=== PATIENT | male | born 1940 | race Hispanic/Latino ===

== ENCOUNTER 2019-07-23 15:28 | Observation (INO) | payer MEDICARE ==
[~2019-07-23] VITALS: Ht 167.6 cm; Wt 83.9 kg
[~2019-07-23 15:28] MED LIST: GLYB1TAB3 PO; MELO7.5T12 PO
[2019-07-23] MEDS ORDERED: ACETAMINOPHEN 325 MG TAB PO PRN (16:15)
[2019-07-23] MEDS ORDERED: SODIUM CHLORIDE 0.9% 10 ML VIAL IVP PRN (16:15)
[2019-07-23] MEDS ORDERED: DiphenhydrAMINE HCL 50 MG/ML VIAL IVP PRN (16:15)
[2019-07-23] MEDS: PHENAZOPYRIDINE HCL 200 MG TABLET PO SCH (16:15)
[2019-07-23 16:17] LABS: BASOPHILS % (AUTO) 0.8 % (0.0-5.0); HEMATOCRIT 29.6 % (42-54); LYMPHOCYTES % (AUTO) 20.9 % (21.0-51.0); MEAN CORPUSCULAR HEMOGLOBIN 30.3 pg (27.0-33.0); MEAN CORPUSCULAR HGB CONC 35.2 g/dL (32.0-36.0); MEAN CORPUSCULAR VOLUME 86.2 fL (79-99); MONOCYTES % (AUTO) 10.4 % (3.0-13.0); NEUTROPHILS % (AUTO) 62.9 % (40.0-77.0); NUCLEATED RED BLOOD CELLS 0.1 % (0.0-0.19); PLATELET COUNT (AUTO) 72 K/uL (130-400); RED BLOOD CELL COUNT(AUTO) 3.44 MIL/uL (4.50-6.20); RED CELL DISTRIBUTION WIDTH 15.1 % (11.0-15.5); WHITE BLOOD COUNT (AUTO) 3.3 K/uL (4.8-10.8)
[2019-07-23 16:27] LABS: CREATININE 0.8 mg/dL (0.5-1.5); POTASSIUM 3.8 mmol/L (3.5-5.1)
[2019-07-23 16:32] LABS: BILIRUBIN,DIRECT 0.5 mg/dL (0.0-0.3); BILIRUBIN,TOTAL 1.5 mg/dL (0.2-1.0); TOTAL PROTEIN, SERUM 6.6 g/dL (6.0-8.3)
[2019-07-23 16:57] LABS: PLATELET MORPHOLOGY COMMENT DECREASED
[2019-07-23] MEDS ORDERED: 1/2 NORMAL SALINE 1,000 ML IV ONE (17:28)
[2019-07-23] MEDS ORDERED: CEFTRIAXONE SODIUM 1 GM ONE (18:07)
[2019-07-23] MEDS ORDERED: PHENAZOPYRIDINE HCL 200 MG TABLET ONE (18:07)
[2019-07-23] MEDS ORDERED: SODIUM CHLORIDE 0.9% 100 ML IV ONE (18:07)
[2019-07-23 18:13] LABS: APPEARANCE,URINE CLOUDY (CLEAR); BILIRUBIN,URINE SMALL (NEGATIVE); COLOR,URINE YELLOW (YELLOW); GLUCOSE, URINE (UA) NEGATIVE (NEGATIVE); KETONES,URINE 5 mg/dL (NEGATIVE); LEUKOCYTE ESTERASE ,URINE LARGE (NEGATIVE); NITRATE,URINE POSITIVE (NEGATIVE); OCCULT BLOOD,URINE SMALL (NEGATIVE); PROTEIN,URINE TRACE mg/dL (NEGATIVE); UROBILINOGEN,URINE 0.2 mg/dL (0.2-1.0)
[2019-07-23 18:18] LABS: BACTERIA,URINE Many /HPF (None Seen); MUCUS,URINE None Seen LPF (None Seen); SQUAMOUS EPITHELIAL CELL,UR 0-2 /HPF (0-2)
[2019-07-23 19:15] VITALS: BP 121/68
[2019-07-23] MEDS ORDERED: LISI-617 PO (20:36)
[2019-07-23] MEDS ORDERED: ACET-575 PO (20:36)
[2019-07-23] MEDS ORDERED: MULT-1289 PO (20:36)
[2019-07-23] MEDS: FAMOTIDINE 20MG TAB 20 MG TAB PO SCH (21:00)
[2019-07-24 00:02] VITALS: BP 129/71
[2019-07-24] MEDS: PHENAZOPYRIDINE HCL 200 MG TABLET PO SCH ×3 (00:30→17:32)
[2019-07-24 04:00] VITALS: BP 113/63
[2019-07-24 05:07] LABS: HEMATOCRIT 26.3 % (42-54); MEAN CORPUSCULAR HEMOGLOBIN 30.2 pg (27.0-33.0); MEAN CORPUSCULAR HGB CONC 35.6 g/dL (32.0-36.0); MEAN CORPUSCULAR VOLUME 84.8 fL (79-99); PLATELET COUNT (AUTO) 65 K/uL (130-400); RED CELL DISTRIBUTION WIDTH 14.6 % (11.0-15.5); WHITE BLOOD COUNT (AUTO) 2.8 K/uL (4.8-10.8)
[2019-07-24 05:22] LABS: ALBUMIN 2.4 g/dL (3.5-5.0); BILIRUBIN,DIRECT 0.4 mg/dL (0.0-0.3); BILIRUBIN,TOTAL 1.2 mg/dL (0.2-1.0); CREATININE 0.8 mg/dL (0.5-1.5); POTASSIUM 4.4 mmol/L (3.5-5.1); TOTAL PROTEIN, SERUM 5.5 g/dL (6.0-8.3)
[2019-07-24 05:40] LABS: BASOPHILS % (MANUAL) 1 % (0-2); EOSINOPHILS % (MANUAL) 10 % (1-6); LYMPHOCYTES % (MANUAL) 25 % (22-44); MAN.DIFF COMMENT-IMPRESSION MANUAL DIFFERENTIAL; MONOCYTES % (MANUAL) 9 % (2-9); SEGMENTED NEUTROPHILS % 55 % (40-70)
[2019-07-24 08:00] VITALS: BP 110/66
[2019-07-24] MEDS ORDERED: PANTOPRAZOLE 40 MG/VIAL IVP SCH (09:00)
[2019-07-24] MEDS: FAMOTIDINE 20MG TAB 20 MG TAB PO SCH ×2 (09:57→19:55)
[2019-07-24] MEDS: CEFTRIAXONE SODIUM 1 GM IVP SCH (09:58)
[2019-07-24 12:00] VITALS: BP 120/69
[2019-07-24] MEDS ORDERED: DIATR MEGLU/DIATRIZOATE SODIUM 30 ML BOTTLE ONE (13:35)
[2019-07-24] MEDS ORDERED: IOHEXOL-350 50ML VIAL IV ONE (13:36)
[2019-07-24] MEDS ORDERED: IOHEXOL-350 75 ML VIAL IV ONE (15:22)
[2019-07-24 16:00] VITALS: BP 140/78
[2019-07-24 20:00] VITALS: BP 133/71
[2019-07-25] VITALS: BP 142/77
[2019-07-25] MEDS: PHENAZOPYRIDINE HCL 200 MG TABLET PO SCH ×2 (00:23→07:51)
[2019-07-25 03:10] VITALS: BP 107/50
[2019-07-25 05:42] LABS: BASOPHILS % (AUTO) 0.9 % (0.0-5.0); HEMATOCRIT 27.3 % (42-54); LYMPHOCYTES % (AUTO) 24.8 % (21.0-51.0); MEAN CORPUSCULAR HEMOGLOBIN 30.1 pg (27.0-33.0); MEAN CORPUSCULAR HGB CONC 34.8 g/dL (32.0-36.0); MEAN CORPUSCULAR VOLUME 86.3 fL (79-99); MONOCYTES % (AUTO) 12.1 % (3.0-13.0); NEUTROPHILS % (AUTO) 55.2 % (40.0-77.0); PLATELET COUNT (AUTO) 60 K/uL (130-400); RED BLOOD CELL COUNT(AUTO) 3.16 MIL/uL (4.50-6.20); RED CELL DISTRIBUTION WIDTH 14.9 % (11.0-15.5); WHITE BLOOD COUNT (AUTO) 2.6 K/uL (4.8-10.8)
[2019-07-25 05:57] LABS: ALBUMIN 2.3 g/dL (3.5-5.0); BILIRUBIN,DIRECT 0.4 mg/dL (0.0-0.3); BILIRUBIN,TOTAL 1.1 mg/dL (0.2-1.0); CREATININE 0.7 mg/dL (0.5-1.5); POTASSIUM 4.2 mmol/L (3.5-5.1); TOTAL PROTEIN, SERUM 5.4 g/dL (6.0-8.3)
[2019-07-25] MEDS: FAMOTIDINE 20MG TAB 20 MG TAB PO SCH (07:51)
[2019-07-25] MEDS: CEFTRIAXONE SODIUM 1 GM IVP SCH (07:51)
[2019-07-25 07:57] VITALS: BP 129/61
[2019-07-25] MEDS ORDERED: PANTOPRAZOLE SODIUM 40 MG TABLET.DR PO SCH (08:09)
[2019-07-25] MEDS ORDERED: FURO20TA6 PO (10:27)
== END 2019-07-25 11:25 | disposition home or self-care (01) ==
LOC: EDH 15:28 → EDHIP 15:29 → 3BH 19:15
PROVIDERS: ADMIT Internal Medicine; ATTEND Internal Medicine
DX: R53.1 Weakness (principal); R14.0 Abdominal distension (gaseous); D64.9 Anemia, unspecified; N39.0 Urinary tract infection, site not specified; I10 Essential (primary) hypertension; E11.9 Type 2 diabetes mellitus without complications; E78.00 Pure hypercholesterolemia, unspecified; Z90.49 Acquired absence of other specified parts of digestive tract
CPT/HCPCS: 36415 ×3; 74178; 76700; 76856; 80048 ×3; 80076 ×3; 81001; 82140; 82948; 85025 ×2; 85027; 86850; 86900; 86901; 96374; 96375; 96376; 99284; C9113; G0378 ×43; J0696 ×3; Q9963; Q9967

== ENCOUNTER → 2019-08-05 | Outpatient (CLI) | payer MEDICARE ==
[~2019-08-05] MED LIST changes: +ACET-575 PO; +FURO20TA6 PO; -GLYB1TAB3 PO; +LISI-617 PO; -MELO7.5T12 PO; +MULT-1289 PO
== END | disposition home or self-care (01) ==
LOC: RAH 07:35
PROVIDERS: ATTEND Internal Medicine Gastroenterology
DX: R16.1 Splenomegaly, not elsewhere classified (principal); R18.8 Other ascites; N26.1 Atrophy of kidney (terminal); Z90.49 Acquired absence of other specified parts of digestive tract
CPT/HCPCS: 76700; 93975

== ENCOUNTER 2019-08-13 12:40 | Emergency (ER) | payer MEDICARE ==
[2019-08-13 13:47] LABS: BASOPHILS % (AUTO) 1.2 % (0.0-5.0); EOSINOPHILS % (AUTO) 6.8 % (0.0-8.0); HEMATOCRIT 29.1 % (42-54); LYMPHOCYTES % (AUTO) 17.8 % (21.0-51.0); MEAN CORPUSCULAR HEMOGLOBIN 29.6 pg (27.0-33.0); MEAN CORPUSCULAR HGB CONC 34.8 g/dL (32.0-36.0); MEAN CORPUSCULAR VOLUME 85.1 fL (79-99); MONOCYTES % (AUTO) 12.4 % (3.0-13.0); NEUTROPHILS % (AUTO) 61.8 % (40.0-77.0); PLATELET COUNT (AUTO) 70 K/uL (130-400); RED BLOOD CELL COUNT(AUTO) 3.43 MIL/uL (4.50-6.20)
[2019-08-13 13:52] LABS: CREATININE 0.9 mg/dL (0.5-1.5)
[2019-08-13 13:56] LABS: INR 1.27 (0.85-1.15); PARTIAL THROMBOPLASTIN TIME 28.2 SEC (26.3-35.5); PROTHROMBIN TIME 13.2 SEC (9.6-11.6)
[2019-08-13 13:59] LABS: ALBUMIN 2.8 g/dL (3.5-5.0); TOTAL PROTEIN, SERUM 6.8 g/dL (6.0-8.3)
[2019-08-13 14:29] LABS: BASOPHILS % (MANUAL) 3 % (0-2); EOSINOPHILS % (MANUAL) 5 % (1-6); LYMPHOCYTES % (MANUAL) 20 % (22-44); MAN.DIFF COMMENT-IMPRESSION MANUAL DIFFERENTIAL; MONOCYTES % (MANUAL) 3 % (2-9); SEGMENTED NEUTROPHILS % 69 % (40-70)
[2019-08-13 14:30] LABS: PLATELET MORPHOLOGY COMMENT DECREASED
== END 2019-08-13 15:23 | disposition home or self-care (01) ==
LOC: EDH 12:40
DX: R05 Cough (principal); E11.9 Type 2 diabetes mellitus without complications; E78.00 Pure hypercholesterolemia, unspecified; K74.60 Unspecified cirrhosis of liver; Z90.49 Acquired absence of other specified parts of digestive tract; Z79.899 Other long term (current) drug therapy
CPT/HCPCS: 36415; 71046; 80053; 85025; 85610; 85730; 87798; 87804

== ENCOUNTER 2019-10-06 08:00 | Day surgery (SDC) | payer MEDICARE ==
[~2019-10-06] VITALS: Ht 170.2 cm; Wt 65.3 kg
[~2019-10-06 08:00] MED LIST changes: +CA C1TAB95 PO; +FERR-82 PO; -FURO20TA6 PO; +FURO40TA5 PO; +LACT10SO46 PO; -LISI-617 PO; +MAGN200T4 PO; +MILK500C PO; +SODIUM CHLORIDE 0.9% 1000ML 1,000 ML IV ONE; +SPIR50TA5 PO
[2019-10-06 08:35] VITALS: BP 132/64
[2019-10-06] MEDS ORDERED: PROPOFOL 10 MG/ML 20ML VIAL IV ONE (09:15)
[2019-10-06 09:35] VITALS: BP 108/76
[2019-10-06 09:40] VITALS: BP 107/69
[2019-10-06 09:45] VITALS: BP 133/73
[2019-10-06 09:50] VITALS: BP 131/67
== END 2019-10-06 10:07 | disposition home or self-care (01) ==
LOC: ENDO 08:00 → DAH 08:00 → ENDO 10:07
PROVIDERS: ATTEND Internal Medicine Gastroenterology
DX: I85.00 Esophageal varices without bleeding (principal); K76.6 Portal hypertension; K31.89 Other diseases of stomach and duodenum; K21.9 Gastro-esophageal reflux disease without esophagitis; I10 Essential (primary) hypertension; E11.9 Type 2 diabetes mellitus without complications; E78.5 Hyperlipidemia, unspecified; Z79.899 Other long term (current) drug therapy; Z90.49 Acquired absence of other specified parts of digestive tract; Z98.890 Other specified postprocedural states; Z80.0 Family history of malignant neoplasm of digestive organs; Z82.49 Family history of ischemic heart disease and other diseases of the circulatory system
CPT/HCPCS: 43244; 82948 ×2; A4215; A4221; A4222; A4223; A4606; A4620; A4663; J2704; J7030

== ENCOUNTER 2019-12-23 13:52 | Observation (INO) | payer MEDICARE ==
[~2019-12-23] VITALS: Ht 172.7 cm; Wt 72.6 kg
[~2019-12-23 13:52] MED LIST changes: -SODIUM CHLORIDE 0.9% 1000ML 1,000 ML IV ONE
[2019-12-23 15:01] LABS: APPEARANCE,URINE Clear (CLEAR); BILIRUBIN,URINE Negative (NEGATIVE); COLOR,URINE Yellow (YELLOW); GLUCOSE, URINE (UA) Negative (NEGATIVE); KETONES,URINE Negative (NEGATIVE); LEUKOCYTE ESTERASE ,URINE Negative (NEGATIVE); NITRATE,URINE Negative (NEGATIVE); OCCULT BLOOD,URINE Negative (NEGATIVE); PROTEIN,URINE Negative (NEGATIVE); UROBILINOGEN,URINE 0.2 mg/dL (0.2-1.0)
[2019-12-23 15:15] LABS: BASOPHILS % (AUTO) 0.8 % (0.0-5.0); EOSINOPHILS % (AUTO) 1.6 % (0.0-8.0); HEMATOCRIT 37.5 % (42-54); LYMPHOCYTES % (AUTO) 20.9 % (21.0-51.0); MEAN CORPUSCULAR HEMOGLOBIN 29.5 pg (27.0-33.0); MEAN CORPUSCULAR HGB CONC 34.9 g/dL (32.0-36.0); MEAN CORPUSCULAR VOLUME 84.5 fL (79-99); MONOCYTES % (AUTO) 11.9 % (3.0-13.0); NEUTROPHILS % (AUTO) 64.2 % (40.0-77.0); PLATELET COUNT (AUTO) 77 K/uL (130-400); RED BLOOD CELL COUNT(AUTO) 4.44 MIL/uL (4.50-6.20); RED CELL DISTRIBUTION WIDTH 14.8 % (11.0-15.5)
[2019-12-23 15:24] LABS: CREATININE 1.5 mg/dL (0.5-1.5); POTASSIUM 4.2 mmol/L (3.5-5.1)
[2019-12-23 15:29] LABS: ALBUMIN 3.7 g/dL (3.5-5.0); BILIRUBIN,TOTAL 2.5 mg/dL (0.2-1.0)
[2019-12-23] MEDS ORDERED: LACTULOSE 20 GM/30 ML UDCUP ONE (15:52)
[2019-12-23] MEDS ORDERED: 1/2 NORMAL SALINE 1,000 ML IV ONE (18:47)
[2019-12-23] MEDS: 1/2 NORMAL SALINE 1,000 ML IV SCH (19:30)
[2019-12-23] MEDS ORDERED: LACTULOSE 20 GM/30 ML UDCUP PO SCH (21:00)
[2019-12-23 22:30] VITALS: BP 139/86
[2019-12-24 03:40] VITALS: BP 145/79
[2019-12-24 04:08] LABS: HEMATOCRIT 38.8 % (42-54); MEAN CORPUSCULAR HEMOGLOBIN 29.4 pg (27.0-33.0); MEAN CORPUSCULAR HGB CONC 34.3 g/dL (32.0-36.0); MEAN CORPUSCULAR VOLUME 85.8 fL (79-99); PLATELET COUNT (AUTO) 77 K/uL (130-400); RED BLOOD CELL COUNT(AUTO) 4.52 MIL/uL (4.50-6.20); RED CELL DISTRIBUTION WIDTH 14.8 % (11.0-15.5); WHITE BLOOD COUNT (AUTO) 5.8 K/uL (4.8-10.8)
[2019-12-24 04:19] LABS: ALBUMIN 3.7 g/dL (3.5-5.0); BILIRUBIN,TOTAL 2.8 mg/dL (0.2-1.0); CREATININE 1.4 mg/dL (0.5-1.5); POTASSIUM 4.7 mmol/L (3.5-5.1); TOTAL PROTEIN, SERUM 8.3 g/dL (6.0-8.3)
[2019-12-24 08:00] VITALS: BP 123/72
[2019-12-24] MEDS: LACTULOSE 20 GM/30 ML UDCUP PO SCH ×4 (09:00→21:07)
[2019-12-24] MEDS ORDERED: CALC600T12 PO (11:18)
[2019-12-24 12:00] VITALS: BP 126/72
--- NOTE | 2019-12-24 14:57 | NUR ---
INITIAL Patient lives with spouse, Brooke Cash, [phone]. No home services. DME: [facility], glucometer (no insulin). Patient is able to complete ADL's independently but does not drive. PCP is Dr. Ben Myles. Pharmacy is [facility] located at [facility]. Patient is on a 1:1 observation due to being confused. As per spouse, patient is not usually confused at home. Spouse stated confusion is due to high ammonia levels. DCP is home. Addendum: 12/24/19 at 1503 by CALOS SWARTZ SS Amended: Links added.
[2019-12-24] MEDS: 1/2 NORMAL SALINE 1,000 ML IV SCH (15:30)
[2019-12-24 16:00] VITALS: BP 136/75
[2019-12-24 20:00] VITALS: BP 105/57
[2019-12-25] VITALS: BP 114/65
[2019-12-25 04:00] VITALS: BP 102/57
[2019-12-25 05:45] LABS: BASOPHILS % (AUTO) 0.9 % (0.0-5.0); EOSINOPHILS % (AUTO) 2.7 % (0.0-8.0); HEMATOCRIT 35.6 % (42-54); LYMPHOCYTES % (AUTO) 20.6 % (21.0-51.0); MEAN CORPUSCULAR HEMOGLOBIN 29.9 pg (27.0-33.0); MEAN CORPUSCULAR HGB CONC 34.8 g/dL (32.0-36.0); MEAN CORPUSCULAR VOLUME 85.8 fL (79-99); NEUTROPHILS % (AUTO) 64.4 % (40.0-77.0); PLATELET COUNT (AUTO) 73 K/uL (130-400); RED BLOOD CELL COUNT(AUTO) 4.15 MIL/uL (4.50-6.20); RED CELL DISTRIBUTION WIDTH 14.7 % (11.0-15.5); WHITE BLOOD COUNT (AUTO) 5.6 K/uL (4.8-10.8)
[2019-12-25 05:59] LABS: ALBUMIN 3.4 g/dL (3.5-5.0); BILIRUBIN,TOTAL 2.7 mg/dL (0.2-1.0); CREATININE 1.4 mg/dL (0.5-1.5); POTASSIUM 4.3 mmol/L (3.5-5.1); TOTAL PROTEIN, SERUM 7.5 g/dL (6.0-8.3)
[2019-12-25 07:04] VITALS: BP 106/62
--- NOTE | 2019-12-25 08:22 | NUR ---
Discharge orders in the chart. Education and instructions provided at the bedside with patient and . Emphasis on dx of hepatic encephalopathy, s/s to monitor for, when to seek emergency care vs dial 911. Pt is to follow up with PCP Dr. Myles in 1 week, must call Friday for an appointment. No new rx. Pt is to continue all previous home medications as ordered, especially lactulose. Discussed importance of taking this exactly as prescribed. PIV removed from rt forearm, tip intact. Dressed with sterile 2x2 and band aid after hemostasis achieved. Pt and wish to wait for am lactulose to be administered prior to leaving, Primary nurse Brit informed.
[2019-12-25] MEDS: LACTULOSE 20 GM/30 ML UDCUP PO SCH (08:28)
== END 2019-12-25 08:35 | disposition home or self-care (01) ==
LOC: EDH 13:52 → EDHIP 16:20 → 4BH 20:45
PROVIDERS: ADMIT Internal Medicine; ATTEND Internal Medicine
DX: K72.90 Hepatic failure, unspecified without coma (principal); E11.9 Type 2 diabetes mellitus without complications; E78.5 Hyperlipidemia, unspecified; D53.9 Nutritional anemia, unspecified; D69.6 Thrombocytopenia, unspecified; I10 Essential (primary) hypertension; K74.60 Unspecified cirrhosis of liver
CPT/HCPCS: 36415 ×3; 70450; 71045; 72170; 73080; 80053 ×3; 81003; 82140 ×3; 85025 ×2; 85027; 93005; 99291; G0378 ×9

== ENCOUNTER 2021-07-22 13:09 | Inpatient (IN) | payer MEDICARE ==
[2021-07-22] VITALS (7 sets, daily range): BP systolic 110–134; BP diastolic 53–67
[~2021-07-22] VITALS: Ht 175.3 cm; Wt 70.7 kg
[~2021-07-22 13:09] MED LIST changes: -CA C1TAB95 PO; +CALC-1125 PO; -FERR-82 PO
[2021-07-22] MEDS ORDERED: QUET50TA24 PO (13:22)
[2021-07-22] MEDS ORDERED: SPIR50TA5 PO (13:22)
[2021-07-22] MEDS ORDERED: SERT-440 PO (13:22)
[2021-07-22] MEDS ORDERED: OLAN5TAB76 PO (13:22)
[2021-07-22] MEDS ORDERED: DONE10TA43 PO (13:22)
[2021-07-22] MEDS ORDERED: MEMA5TAB7 PO (13:22)
[2021-07-22] MEDS ORDERED: PANT20TA18 PO (13:22)
[2021-07-22] MEDS ORDERED: FERR-72 PO (13:22)
[2021-07-22] MEDS ORDERED: ACETAMINOPHEN 500 MG TABLET PO SCH (13:30)
[2021-07-22 14:20] LABS: BASOPHILS % (AUTO) 0.7 % (0.0-5.0); EOSINOPHILS % (AUTO) 1.8 % (0.0-8.0); HEMATOCRIT 31.5 % (42-54); LYMPHOCYTES % (AUTO) 13.2 % (21.0-51.0); MEAN CORPUSCULAR HEMOGLOBIN 27.6 pg (27.0-33.0); MEAN CORPUSCULAR HGB CONC 33.3 g/dL (32.0-36.0); MEAN CORPUSCULAR VOLUME 82.7 fL (79-99); MONOCYTES % (AUTO) 7.9 % (3.0-13.0); NEUTROPHILS % (AUTO) 76.2 % (40.0-77.0); PLATELET COUNT (AUTO) 66 K/uL (130-400); RED BLOOD CELL COUNT(AUTO) 3.81 MIL/uL (4.50-6.20); RED CELL DISTRIBUTION WIDTH 17.9 % (11.0-15.5); WHITE BLOOD COUNT (AUTO) 4.5 K/uL (4.8-10.8)
[2021-07-22 14:35] LABS: CREATININE 1.6 mg/dL (0.5-1.5); POTASSIUM 4.6 mmol/L (3.5-5.1)
[2021-07-22 14:45] LABS: B-TYPE NATRIURETIC PEPTIDE 78 pg/mL (0-100)
[2021-07-22 14:48] LABS: ALBUMIN 3.5 g/dL (3.5-5.0); CRP QUANTITATIVE 3.2 mg/L (0.00-9.0); TOTAL PROTEIN, SERUM 7.5 g/dL (6.0-8.3)
[2021-07-22] MEDS ORDERED: 0.9%NACL 1000ML 1,000 ML IV SCH (15:00)
[2021-07-22] MEDS ORDERED: 1/2 NS 1000ML 1,000 ML IV ONE (15:09)
[2021-07-22] MEDS ORDERED: ACETAMINOPHEN 325 MG TAB PO PRN (15:30)
[2021-07-22] MEDS ORDERED: 1/2 NS 1000ML 1,000 ML IV SCH ×2 (15:30)
[2021-07-22] MEDS ORDERED: LACTULOSE 20 GM/30 ML UDCUP PO PRN (15:30)
[2021-07-22 16:06] LABS: APPEARANCE,URINE Clear (CLEAR); BILIRUBIN,URINE Negative (NEGATIVE); COLOR,URINE Yellow (YELLOW); GLUCOSE, URINE (UA) Negative (NEGATIVE); KETONES,URINE Negative (NEGATIVE); LEUKOCYTE ESTERASE ,URINE Negative (NEGATIVE); NITRATE,URINE Negative (NEGATIVE); OCCULT BLOOD,URINE Negative (NEGATIVE); PROTEIN,URINE Negative (NEGATIVE)
[2021-07-22] MEDS: LACTULOSE 20 GM/30 ML UDCUP PO SCH (17:07)
[2021-07-22] MEDS: OLANZAPINE 5 MG TAB PO SCH (20:27)
[2021-07-22] MEDS: SERTRALINE HCL 50 MG TABLET PO SCH (20:27)
[2021-07-22] MEDS: SPIRONOLACTONE 25 MG TAB PO SCH (20:27)
[2021-07-22] MEDS: MEMANTINE HCL 5 MG TABLET PO SCH (20:27)
[2021-07-22] MEDS: QUETIAPINE FUMARATE 100 MG TAB PO SCH (20:27)
[2021-07-22] MEDS ORDERED: NON-FORMULARY MEDICATION 1 EACH (Sertraline HCl 100 MG) PO SCH (21:00)
[2021-07-22] MEDS ORDERED: NON-FORMULARY MEDICATION 1 EACH (Quetiapine Fumarate 50 MG) PO SCH (21:00)
[2021-07-22] MEDS ORDERED: NON-FORMULARY MEDICATION 1 EACH (Spironolactone 50 MG) PO SCH (21:00)
[2021-07-23] VITALS (10 sets, daily range): BP systolic 91–140; BP diastolic 48–62
[2021-07-23 06:49] LABS: BASOPHILS % (AUTO) 1.1 % (0.0-5.0); EOSINOPHILS % (AUTO) 2.5 % (0.0-8.0); MEAN CORPUSCULAR HEMOGLOBIN 27.4 pg (27.0-33.0); MEAN CORPUSCULAR VOLUME 83.1 fL (79-99); MONOCYTES % (AUTO) 10.7 % (3.0-13.0); NEUTROPHILS % (AUTO) 62.4 % (40.0-77.0); PLATELET COUNT (AUTO) 57 K/uL (130-400); RED BLOOD CELL COUNT(AUTO) 3.61 MIL/uL (4.50-6.20); RED CELL DISTRIBUTION WIDTH 18.1 % (11.0-15.5); WHITE BLOOD COUNT (AUTO) 3.7 K/uL (4.8-10.8)
[2021-07-23 07:05] LABS: ALBUMIN 3.2 g/dL (3.5-5.0); BILIRUBIN,TOTAL 1.1 mg/dL (0.2-1.0); CREATININE 1.5 mg/dL (0.5-1.5); POTASSIUM 4.4 mmol/L (3.5-5.1); TOTAL PROTEIN, SERUM 6.9 g/dL (6.0-8.3)
[2021-07-23] MEDS: LACTULOSE 20 GM/30 ML UDCUP PO SCH ×2 (08:29→22:16)
[2021-07-23] MEDS: DONEPEZIL HCL 5 MG TAB PO SCH (08:29)
[2021-07-23] MEDS: FERROUS SULFATE 325 MG TABLET.DR PO SCH (08:29)
[2021-07-23] MEDS: MEMANTINE HCL 5 MG TABLET PO SCH ×2 (08:29→22:17)
[2021-07-23] MEDS: PANTOPRAZOLE 40 MG TAB DR PO SCH (08:29)
[2021-07-23] MEDS: FUROSEMIDE 40 MG TABLET PO SCH (08:29)
[2021-07-23] MEDS: SPIRONOLACTONE 25 MG TAB PO SCH ×2 (08:29→22:17)
[2021-07-23] MEDS ORDERED: NON-FORMULARY MEDICATION 1 EACH (Pantoprazole Sodium 20 MG) PO SCH (09:00)
[2021-07-23] MEDS ORDERED: NON-FORMULARY MEDICATION 1 EACH (Ferrous Sulfate 325 MG) PO SCH (09:00)
[2021-07-23] MEDS ORDERED: NON-FORMULARY MEDICATION 1 EACH (Donepezil HCl 10 MG) PO SCH (09:00)
[2021-07-23] MEDS ORDERED: GLUCAGON 1MG KIT 1 MG ML IM PRN (17:30)
[2021-07-23] MEDS ORDERED: DEXTROSE 50%-WATER 50 ML DISP.SYRIN IV PRN (18:30)
[2021-07-23] MEDS: INSULIN HUMULIN R 100 UNIT/ML 3ML SQ SCH (21:00)
[2021-07-23] MEDS: QUETIAPINE FUMARATE 100 MG TAB PO SCH (22:17)
[2021-07-23] MEDS: OLANZAPINE 5 MG TAB PO SCH (22:17)
[2021-07-23] MEDS: SERTRALINE HCL 50 MG TABLET PO SCH (22:17)
[2021-07-24 00:40] VITALS: BP 97/48
[2021-07-24 03:37] VITALS: BP 101/54
[2021-07-24 03:56] LABS: BASOPHILS % (AUTO) 0.8 % (0.0-5.0); EOSINOPHILS % (AUTO) 1.3 % (0.0-8.0); HEMATOCRIT 30.3 % (42-54); LYMPHOCYTES % (AUTO) 16.8 % (21.0-51.0); MEAN CORPUSCULAR HEMOGLOBIN 27.7 pg (27.0-33.0); MEAN CORPUSCULAR HGB CONC 32.7 g/dL (32.0-36.0); MEAN CORPUSCULAR VOLUME 84.6 fL (79-99); MONOCYTES % (AUTO) 12.1 % (3.0-13.0); NEUTROPHILS % (AUTO) 68.7 % (40.0-77.0); PLATELET COUNT (AUTO) 56 K/uL (130-400); RED BLOOD CELL COUNT(AUTO) 3.58 MIL/uL (4.50-6.20); RED CELL DISTRIBUTION WIDTH 18.1 % (11.0-15.5); WHITE BLOOD COUNT (AUTO) 3.8 K/uL (4.8-10.8)
[2021-07-24 04:24] LABS: ALBUMIN 3.1 g/dL (3.5-5.0); BILIRUBIN,TOTAL 1.5 mg/dL (0.2-1.0); CREATININE 1.5 mg/dL (0.5-1.5); POTASSIUM 4.4 mmol/L (3.5-5.1); TOTAL PROTEIN, SERUM 6.8 g/dL (6.0-8.3)
[2021-07-24] MEDS: INSULIN HUMULIN R 100 UNIT/ML 3ML SQ SCH ×3 (06:40→20:47)
[2021-07-24 07:10] VITALS: BP 105/53
[2021-07-24] MEDS: DONEPEZIL HCL 5 MG TAB PO SCH (08:52)
[2021-07-24] MEDS: LACTULOSE 20 GM/30 ML UDCUP PO SCH ×2 (08:52→21:08)
[2021-07-24] MEDS: SPIRONOLACTONE 25 MG TAB PO SCH ×2 (08:52→21:09)
[2021-07-24] MEDS: PANTOPRAZOLE 40 MG TAB DR PO SCH (08:53)
[2021-07-24] MEDS: MEMANTINE HCL 5 MG TABLET PO SCH ×2 (08:53→21:09)
[2021-07-24] MEDS: FUROSEMIDE 40 MG TABLET PO SCH (08:53)
[2021-07-24] MEDS: FERROUS SULFATE 325 MG TABLET.DR PO SCH (08:53)
[2021-07-24 11:40] VITALS: BP 103/60
[2021-07-24 14:55] VITALS: BP 110/52
[2021-07-24 19:59] VITALS: BP 120/57
[2021-07-24] MEDS: QUETIAPINE FUMARATE 100 MG TAB PO SCH (21:09)
[2021-07-24] MEDS: OLANZAPINE 5 MG TAB PO SCH (21:09)
[2021-07-24] MEDS: SERTRALINE HCL 50 MG TABLET PO SCH (21:09)
[2021-07-25] VITALS (7 sets, daily range): BP systolic 105–123; BP diastolic 42–56
[2021-07-25] MEDS: INSULIN HUMULIN R 100 UNIT/ML 3ML SQ SCH ×3 (06:03→22:05)
[2021-07-25] MEDS: LACTULOSE 20 GM/30 ML UDCUP PO SCH ×2 (08:41→21:00)
[2021-07-25] MEDS: MEMANTINE HCL 5 MG TABLET PO SCH ×2 (08:41→22:04)
[2021-07-25] MEDS: PANTOPRAZOLE 40 MG TAB DR PO SCH (08:42)
[2021-07-25] MEDS: FERROUS SULFATE 325 MG TABLET.DR PO SCH (08:42)
[2021-07-25] MEDS: SPIRONOLACTONE 25 MG TAB PO SCH ×2 (08:42→22:03)
[2021-07-25] MEDS: FUROSEMIDE 40 MG TABLET PO SCH (08:42)
[2021-07-25] MEDS: DONEPEZIL HCL 5 MG TAB PO SCH (08:42)
[2021-07-25 09:05] LABS: HEMATOCRIT 31.4 % (42-54); MEAN CORPUSCULAR HEMOGLOBIN 27.8 pg (27.0-33.0); MEAN CORPUSCULAR HGB CONC 33.4 g/dL (32.0-36.0); MEAN CORPUSCULAR VOLUME 83.1 fL (79-99); PLATELET COUNT (AUTO) 55 K/uL (130-400); RED BLOOD CELL COUNT(AUTO) 3.78 MIL/uL (4.50-6.20); RED CELL DISTRIBUTION WIDTH 17.5 % (11.0-15.5); WHITE BLOOD COUNT (AUTO) 9.3 K/uL (4.8-10.8)
[2021-07-25 09:44] LABS: CREATININE 1.8 mg/dL (0.5-1.5); POTASSIUM 4.1 mmol/L (3.5-5.1)
[2021-07-25 09:49] LABS: BILIRUBIN,TOTAL 1.8 mg/dL (0.2-1.0)
[2021-07-25 09:58] LABS: BASOPHILS % (MANUAL) 1 % (0-2); LYMPHOCYTES % (MANUAL) 12 % (22-44); MAN.DIFF COMMENT-IMPRESSION MANUAL DIFFERENTIAL; MONOCYTES % (MANUAL) 5 % (2-9); PLATELET MORPHOLOGY COMMENT DECREASED; SEGMENTED NEUTROPHILS % 82 % (40-70)
[2021-07-25] MEDS: SERTRALINE HCL 50 MG TABLET PO SCH (22:03)
[2021-07-25] MEDS: OLANZAPINE 5 MG TAB PO SCH (22:03)
[2021-07-25] MEDS: QUETIAPINE FUMARATE 100 MG TAB PO SCH (22:04)
[2021-07-26 03:42] VITALS: BP 100/47
[2021-07-26 04:58] LABS: BASOPHILS % (AUTO) 0.4 % (0.0-5.0); EOSINOPHILS % (AUTO) 1.4 % (0.0-8.0); HEMATOCRIT 30.1 % (42-54); LYMPHOCYTES % (AUTO) 9.8 % (21.0-51.0); MEAN CORPUSCULAR HEMOGLOBIN 27.7 pg (27.0-33.0); MEAN CORPUSCULAR HGB CONC 33.6 g/dL (32.0-36.0); MEAN CORPUSCULAR VOLUME 82.7 fL (79-99); MONOCYTES % (AUTO) 10.4 % (3.0-13.0); NEUTROPHILS % (AUTO) 77.6 % (40.0-77.0); PLATELET COUNT (AUTO) 52 K/uL (130-400); RED BLOOD CELL COUNT(AUTO) 3.64 MIL/uL (4.50-6.20); WHITE BLOOD COUNT (AUTO) 7.1 K/uL (4.8-10.8)
[2021-07-26] MEDS: INSULIN HUMULIN R 100 UNIT/ML 3ML SQ SCH ×4 (05:47→22:52)
[2021-07-26 08:00] VITALS: BP 93/54
[2021-07-26] MEDS: FUROSEMIDE 40 MG TABLET PO SCH (09:02)
[2021-07-26] MEDS: MEMANTINE HCL 5 MG TABLET PO SCH (09:02)
[2021-07-26] MEDS: FERROUS SULFATE 325 MG TABLET.DR PO SCH (09:02)
[2021-07-26] MEDS: PANTOPRAZOLE 40 MG TAB DR PO SCH (09:03)
[2021-07-26] MEDS: SPIRONOLACTONE 25 MG TAB PO SCH ×2 (09:03→22:40)
[2021-07-26] MEDS: DONEPEZIL HCL 5 MG TAB PO SCH (09:03)
[2021-07-26] MEDS: ACETAMINOPHEN 325 MG TAB PO PRN (09:16)
[2021-07-26 12:00] VITALS: BP 100/60
[2021-07-26 16:00] VITALS: BP 112/52
[2021-07-26 20:35] VITALS: BP 114/58
[2021-07-26] MEDS: SERTRALINE HCL 50 MG TABLET PO SCH (22:40)
[2021-07-27] VITALS (7 sets, daily range): BP systolic 83–133; BP diastolic 38–65
[2021-07-27 04:38] LABS: AMMONIA 106 umol/L (11-32)
[2021-07-27 05:09] LABS: ALANINE AMINOTRANSFERASE 23 U/L (12-78); ALBUMIN 2.6 g/dL (3.5-5.0); ASPARTATE AMINOTRANSFERASE 48 U/L (10-37); BILIRUBIN,DIRECT 0.2 mg/dL (0.0-0.3); BILIRUBIN,TOTAL 0.8 mg/dL (0.2-1.0); CARBON DIOXIDE 21 mmol/L (21-32); CHLORIDE 104 mmol/L (101-111); CREATININE 1.4 mg/dL (0.5-1.5); GLOMERULAR FILTR. RATE CALC 52 mL/min (>60); GLUCOSE,RANDOM 191 mg/dL (70-105); POTASSIUM 4.2 mmol/L (3.5-5.1); SODIUM SERUM 137 mmol/L (136-145); TOTAL PROTEIN, SERUM 6.6 g/dL (6.0-8.3); UREA NITROGEN, BLOOD 41 mg/dL (7-18)
[2021-07-27] MEDS: INSULIN HUMULIN R 100 UNIT/ML 3ML SQ SCH ×4 (07:30→20:19)
[2021-07-27] MEDS: SPIRONOLACTONE 25 MG TAB PO SCH ×3 (09:00→20:17)
[2021-07-27] MEDS: FUROSEMIDE 40 MG TABLET PO SCH (09:49)
[2021-07-27] MEDS: LACTULOSE 20 GM/30 ML UDCUP PO SCH ×3 (09:49→20:18)
[2021-07-27] MEDS: FERROUS SULFATE 325 MG TABLET.DR PO SCH (09:49)
[2021-07-27] MEDS: PANTOPRAZOLE 40 MG TAB DR PO SCH (09:49)
[2021-07-27] MEDS: ACETAMINOPHEN 325 MG TAB PO PRN (09:50)
[2021-07-27] MEDS: SERTRALINE HCL 50 MG TABLET PO SCH (20:18)
[2021-07-28 03:58] VITALS: BP 130/63
[2021-07-28 04:20] LABS: HEMATOCRIT 29.6 % (42-54); MEAN CORPUSCULAR HEMOGLOBIN 27.7 pg (27.0-33.0); MEAN CORPUSCULAR HGB CONC 33.1 g/dL (32.0-36.0); MEAN CORPUSCULAR VOLUME 83.6 fL (79-99); PLATELET COUNT (AUTO) 71 K/uL (130-400); RED BLOOD CELL COUNT(AUTO) 3.54 MIL/uL (4.50-6.20); RED CELL DISTRIBUTION WIDTH 16.6 % (11.0-15.5); WHITE BLOOD COUNT (AUTO) 5.4 K/uL (4.8-10.8)
[2021-07-28 04:32] LABS: CREATININE 1.5 mg/dL (0.5-1.5); POTASSIUM 3.8 mmol/L (3.5-5.1)
[2021-07-28 05:25] LABS: BAND NEUTROPHILS % (MANUAL) 1 % (0-2); LYMPHOCYTES % (MANUAL) 10 % (22-44); MAN.DIFF COMMENT-IMPRESSION MANUAL DIFFERENTIAL; METAMYELOCYTES % 1 % (0-0); MONOCYTES % (MANUAL) 4 % (2-9); SEGMENTED NEUTROPHILS % 84 % (40-70)
[2021-07-28] MEDS: INSULIN HUMULIN R 100 UNIT/ML 3ML SQ SCH ×2 (05:59→11:30)
[2021-07-28 07:41] VITALS: BP 117/55
[2021-07-28] MEDS: PANTOPRAZOLE 40 MG TAB DR PO SCH (08:53)
[2021-07-28] MEDS: SPIRONOLACTONE 25 MG TAB PO SCH (08:53)
[2021-07-28] MEDS: FUROSEMIDE 40 MG TABLET PO SCH (08:53)
[2021-07-28] MEDS: FERROUS SULFATE 325 MG TABLET.DR PO SCH (08:53)
[2021-07-28] MEDS: LACTULOSE 20 GM/30 ML UDCUP PO SCH (08:53)
[2021-07-28 11:54] VITALS: BP 134/59
== END 2021-07-28 14:02 | DRG 442 ==
LOC: EDH 13:09 → EDHIP 15:13 → 4CH 07-23 18:28
PROVIDERS: ADMIT Internal Medicine; ATTEND Internal Medicine
DX: K72.90 Hepatic failure, unspecified without coma (principal); K76.6 Portal hypertension; S22.42XA Multiple fractures of ribs, left side, initial encounter for closed fracture; G82.20 Paraplegia, unspecified; D61.818 Other pancytopenia; F05 Delirium due to known physiological condition; J47.9 Bronchiectasis, uncomplicated; E78.00 Pure hypercholesterolemia, unspecified; F03.90 Unspecified dementia, unspecified severity, without behavioral disturbance, psychotic disturbance, mood disturbance, and anxiety; E78.5 Hyperlipidemia, unspecified; D64.9 Anemia, unspecified; E86.0 Dehydration; D69.59 Other secondary thrombocytopenia; D73.1 Hypersplenism; F10.10 Alcohol abuse, uncomplicated; G31.2 Degeneration of nervous system due to alcohol; I10 Essential (primary) hypertension; E11.9 Type 2 diabetes mellitus without complications; R29.6 Repeated falls; K70.30 Alcoholic cirrhosis of liver without ascites; Z79.4 Long term (current) use of insulin; Z79.899 Other long term (current) drug therapy; Z74.01 Bed confinement status
CPT/HCPCS: 36415; 70450; 71250; 72125; 73020; 73100; 80048; 80053; 80076; 81003; 82140; 82550; 82607; 82746; 82948; 83880; 84443; 84484; 85025; 86140; 93005; 97039; G0378; J1815

== ENCOUNTER 2021-09-23 08:16 | Inpatient (IN) | payer MEDICARE ==
[~2021-09-23] VITALS: Ht 167.6 cm; Wt 61.3 kg
[~2021-09-23 08:16] MED LIST changes: -ACET-575 PO; -CALC-1125 PO; +DONE10TA43 PO; +FERR-72 PO; -MAGN200T4 PO; +MEMA5TAB7 PO; -MILK500C PO; -MULT-1289 PO; +OLAN5TAB76 PO; +PANT20TA18 PO; +QUET50TA24 PO; +SERT-440 PO
[2021-09-23 08:59] LABS: BASOPHILS % (AUTO) 0.8 % (0.0-5.0); EOSINOPHILS % (AUTO) 6.4 % (0.0-8.0); HEMATOCRIT 31.4 % (42-54); LYMPHOCYTES % (AUTO) 24.4 % (21.0-51.0); MEAN CORPUSCULAR HEMOGLOBIN 28.1 pg (27.0-33.0); MEAN CORPUSCULAR HGB CONC 33.8 g/dL (32.0-36.0); MEAN CORPUSCULAR VOLUME 83.3 fL (79-99); MONOCYTES % (AUTO) 9.4 % (3.0-13.0); NEUTROPHILS % (AUTO) 58.6 % (40.0-77.0); PLATELET COUNT (AUTO) 70 K/uL (130-400); RED BLOOD CELL COUNT(AUTO) 3.77 MIL/uL (4.50-6.20); RED CELL DISTRIBUTION WIDTH 15.6 % (11.0-15.5); WHITE BLOOD COUNT (AUTO) 4.9 K/uL (4.8-10.8)
[2021-09-23 09:07] LABS: CREATININE 1.7 mg/dL (0.5-1.5); POTASSIUM 4.5 mmol/L (3.5-5.1)
[2021-09-23 09:09] LABS: INR 1.1 (0.85-1.15); PROTHROMBIN TIME 11.9 SEC (9.6-11.6)
[2021-09-23 09:13] LABS: ALBUMIN 3.4 g/dL (3.5-5.0); BILIRUBIN,TOTAL 1.5 mg/dL (0.2-1.0); MAGNESIUM 1.9 mg/dL (1.80-2.40); TOTAL PROTEIN, SERUM 6.7 g/dL (6.0-8.3)
[2021-09-23 09:45] LABS: APPEARANCE,URINE Clear (CLEAR); BILIRUBIN,URINE Negative (NEGATIVE); COLOR,URINE Yellow (YELLOW); GLUCOSE, URINE (UA) Negative (NEGATIVE); KETONES,URINE Negative (NEGATIVE); LEUKOCYTE ESTERASE ,URINE Trace (NEGATIVE); NITRATE,URINE Negative (NEGATIVE); OCCULT BLOOD,URINE Negative (NEGATIVE); PROTEIN,URINE Negative (NEGATIVE); UROBILINOGEN,URINE 0.2 mg/dL (0.2-1.0)
[2021-09-23 09:52] LABS: AMPHET/METH SCREEN,URINE NEGATIVE (NEGATIVE); BARBITURATE SCREEN, URINE NEGATIVE (NEGATIVE); BENZODIAZEPINES SCREEN,URINE NEGATIVE (NEGATIVE); CANNABINOID SCREEN,URINE NEGATIVE (NEGATIVE); COCAINE SCREEN,URINE NEGATIVE (NEGATIVE); OPIATE SCREEN,URINE NEGATIVE (NEGATIVE); PHENCYCLIDINE SCREEN,URINE NEGATIVE (NEGATIVE)
[2021-09-23 10:10] LABS: BACTERIA,URINE Rare /HPF (None Seen); RBC,URINE None Seen /HPF (0-1); SQUAMOUS EPITHELIAL CELL,UR 0-2 /HPF (0-2)
[2021-09-23] MEDS ORDERED: 0.9%NACL 50ML 50 ML IV ONE (10:19)
[2021-09-23] MEDS ORDERED: LACTULOSE 20 GM/30 ML UDCUP ONE ×2 (10:19→19:20)
[2021-09-23] MEDS: CEFTRIAXONE 1G VIAL IVP SCH (10:31)
[2021-09-23 13:16] VITALS: BP 112/59
[2021-09-23 15:45] VITALS: BP 102/57
[2021-09-23] MEDS ORDERED: MEMANTINE HCL 5 MG TABLET ONE (19:20)
[2021-09-23] MEDS ORDERED: SPIRONOLACTONE 25 MG TAB ONE (19:20)
[2021-09-23] MEDS ORDERED: QUETIAPINE FUMARATE 25 MG TAB ONE (19:21)
[2021-09-23] MEDS ORDERED: OLANZAPINE 5 MG TAB ONE (19:21)
[2021-09-23] MEDS ORDERED: SERTRALINE HCL 50 MG TABLET ONE (19:21)
[2021-09-23 19:52] VITALS: BP 98/47
[2021-09-23] MEDS: SPIRONOLACTONE 25 MG TAB PO SCH (20:10)
[2021-09-23] MEDS: MEMANTINE HCL 5 MG TABLET PO SCH (20:10)
[2021-09-23] MEDS: QUETIAPINE FUMARATE 25 MG TAB PO SCH (20:10)
[2021-09-23] MEDS: OLANZAPINE 5 MG TAB PO SCH (20:11)
[2021-09-23] MEDS: SERTRALINE HCL 50 MG TABLET PO SCH (20:11)
[2021-09-23] MEDS ORDERED: LACTULOSE 20 GM/30 ML UDCUP PO SCH (21:00)
[2021-09-23 23:25] VITALS: BP 102/58
[2021-09-24 03:37] VITALS: BP 107/59
[2021-09-24 04:04] LABS: BASOPHILS % (AUTO) 0.8 % (0.0-5.0); EOSINOPHILS % (AUTO) 7.6 % (0.0-8.0); HEMATOCRIT 27.2 % (42-54); LYMPHOCYTES % (AUTO) 19.9 % (21.0-51.0); MEAN CORPUSCULAR HEMOGLOBIN 28.7 pg (27.0-33.0); MEAN CORPUSCULAR HGB CONC 33.5 g/dL (32.0-36.0); MEAN CORPUSCULAR VOLUME 85.8 fL (79-99); MONOCYTES % (AUTO) 11.5 % (3.0-13.0); NEUTROPHILS % (AUTO) 59.9 % (40.0-77.0); PLATELET COUNT (AUTO) 63 K/uL (130-400); RED BLOOD CELL COUNT(AUTO) 3.17 MIL/uL (4.50-6.20); RED CELL DISTRIBUTION WIDTH 15.8 % (11.0-15.5); WHITE BLOOD COUNT (AUTO) 3.6 K/uL (4.8-10.8)
[2021-09-24 04:20] LABS: ALBUMIN 2.8 g/dL (3.5-5.0); BILIRUBIN,TOTAL 1.3 mg/dL (0.2-1.0); POTASSIUM 3.9 mmol/L (3.5-5.1)
[2021-09-24 04:40] LABS: CREATININE 1.5 mg/dL (0.5-1.5)
[2021-09-24 08:00] VITALS: BP 117/60
[2021-09-24] MEDS: LACTULOSE 20 GM/30 ML UDCUP PO SCH ×2 (08:15→20:46)
[2021-09-24] MEDS: SPIRONOLACTONE 25 MG TAB PO SCH ×2 (08:16→20:51)
[2021-09-24] MEDS: FERROUS SULFATE 325 MG TABLET.DR PO SCH (08:16)
[2021-09-24] MEDS: DONEPEZIL HCL 5 MG TAB PO SCH (08:16)
[2021-09-24] MEDS: FUROSEMIDE 40 MG TABLET PO SCH (08:16)
[2021-09-24] MEDS: MEMANTINE HCL 5 MG TABLET PO SCH ×2 (08:17→20:51)
[2021-09-24] MEDS: PANTOPRAZOLE 40 MG TAB DR PO SCH (08:17)
[2021-09-24 11:59] VITALS: BP 98/54
[2021-09-24] MEDS: CEFTRIAXONE 1G VIAL IVP SCH (15:20)
[2021-09-24 15:47] VITALS: BP 97/56
[2021-09-24 20:00] VITALS: BP 104/56
[2021-09-24] MEDS: QUETIAPINE FUMARATE 25 MG TAB PO SCH (20:51)
[2021-09-24] MEDS: SERTRALINE HCL 50 MG TABLET PO SCH (20:51)
[2021-09-24] MEDS: OLANZAPINE 5 MG TAB PO SCH (20:51)
[2021-09-25 00:57] VITALS: BP 98/52
[2021-09-25 04:10] VITALS: BP 108/57
[2021-09-25 04:40] LABS: HEMATOCRIT 26.6 % (42-54); MEAN CORPUSCULAR HEMOGLOBIN 28.5 pg (27.0-33.0); MEAN CORPUSCULAR HGB CONC 33.5 g/dL (32.0-36.0); MEAN CORPUSCULAR VOLUME 85.3 fL (79-99); PLATELET COUNT (AUTO) 61 K/uL (130-400); RED BLOOD CELL COUNT(AUTO) 3.12 MIL/uL (4.50-6.20); RED CELL DISTRIBUTION WIDTH 15.5 % (11.0-15.5); WHITE BLOOD COUNT (AUTO) 2.8 K/uL (4.8-10.8)
[2021-09-25 04:58] LABS: ALBUMIN 2.7 g/dL (3.5-5.0); BILIRUBIN,TOTAL 1.2 mg/dL (0.2-1.0); CREATININE 1.6 mg/dL (0.5-1.5); POTASSIUM 3.9 mmol/L (3.5-5.1); TOTAL PROTEIN, SERUM 5.8 g/dL (6.0-8.3)
[2021-09-25 05:31] LABS: BAND NEUTROPHILS % (MANUAL) 2 % (0-2); BASOPHILS % (MANUAL) 1 % (0-2); EOSINOPHILS % (MANUAL) 8 % (1-6); LYMPHOCYTES % (MANUAL) 21 % (22-44); MONOCYTES % (MANUAL) 6 % (2-9); REACTIVE LYMPHOCYTES 1 % (0-0); SEGMENTED NEUTROPHILS % 61 % (40-70)
[2021-09-25 05:33] LABS: MAN.DIFF COMMENT-IMPRESSION MANUAL DIFFERENTIAL; PLATELET MORPHOLOGY COMMENT DECREASED
[2021-09-25 08:00] VITALS: BP 126/60
[2021-09-25] MEDS: SPIRONOLACTONE 25 MG TAB PO SCH ×2 (08:08→22:00)
[2021-09-25] MEDS: FUROSEMIDE 40 MG TABLET PO SCH (08:08)
[2021-09-25] MEDS: DONEPEZIL HCL 5 MG TAB PO SCH (08:08)
[2021-09-25] MEDS: MEMANTINE HCL 5 MG TABLET PO SCH ×2 (08:08→22:00)
[2021-09-25] MEDS: FERROUS SULFATE 325 MG TABLET.DR PO SCH (08:09)
[2021-09-25] MEDS: PANTOPRAZOLE 40 MG TAB DR PO SCH (08:09)
[2021-09-25] MEDS: LACTULOSE 20 GM/30 ML UDCUP PO SCH ×2 (08:09→22:00)
[2021-09-25] MEDS: CEFTRIAXONE 1G VIAL IVP SCH (11:55)
[2021-09-25 12:00] VITALS: BP 105/64
[2021-09-25 16:00] VITALS: BP 120/59
[2021-09-25 21:15] VITALS: BP 97/50
[2021-09-25] MEDS: SERTRALINE HCL 50 MG TABLET PO SCH (22:00)
[2021-09-25] MEDS: QUETIAPINE FUMARATE 25 MG TAB PO SCH (22:00)
[2021-09-26] VITALS (7 sets, daily range): BP systolic 94–141; BP diastolic 49–76
[2021-09-26 04:29] LABS: HEMATOCRIT 28.3 % (42-54); MEAN CORPUSCULAR HEMOGLOBIN 28.7 pg (27.0-33.0); MEAN CORPUSCULAR HGB CONC 33.2 g/dL (32.0-36.0); MEAN CORPUSCULAR VOLUME 86.5 fL (79-99); RED BLOOD CELL COUNT(AUTO) 3.27 MIL/uL (4.50-6.20); RED CELL DISTRIBUTION WIDTH 15.6 % (11.0-15.5); WHITE BLOOD COUNT (AUTO) 3.1 K/uL (4.8-10.8)
[2021-09-26 04:55] LABS: BILIRUBIN,TOTAL 1.1 mg/dL (0.2-1.0); CREATININE 1.7 mg/dL (0.5-1.5); POTASSIUM 4.1 mmol/L (3.5-5.1); TOTAL PROTEIN, SERUM 6.6 g/dL (6.0-8.3)
[2021-09-26] MEDS: MEMANTINE HCL 5 MG TABLET PO SCH ×2 (10:41→20:18)
[2021-09-26] MEDS: SPIRONOLACTONE 25 MG TAB PO SCH ×2 (10:41→20:18)
[2021-09-26] MEDS: LACTULOSE 20 GM/30 ML UDCUP PO SCH ×2 (10:41→20:21)
[2021-09-26] MEDS: DONEPEZIL HCL 5 MG TAB PO SCH (10:41)
[2021-09-26] MEDS: PANTOPRAZOLE 40 MG TAB DR PO SCH (10:41)
[2021-09-26] MEDS: CEFTRIAXONE 1G VIAL IVP SCH (10:41)
[2021-09-26] MEDS: FUROSEMIDE 40 MG TABLET PO SCH (10:42)
[2021-09-26] MEDS: FERROUS SULFATE 325 MG TABLET.DR PO SCH (10:42)
[2021-09-26] MEDS: QUETIAPINE FUMARATE 25 MG TAB PO SCH (20:18)
[2021-09-26] MEDS: SERTRALINE HCL 50 MG TABLET PO SCH (20:18)
[2021-09-27 03:41] VITALS: BP 101/60
[2021-09-27 07:40] VITALS: BP 108/55
[2021-09-27] MEDS: LACTULOSE 20 GM/30 ML UDCUP PO SCH (09:00)
[2021-09-27] MEDS: FUROSEMIDE 40 MG TABLET PO SCH (10:47)
[2021-09-27] MEDS: SPIRONOLACTONE 25 MG TAB PO SCH (10:47)
[2021-09-27] MEDS: DONEPEZIL HCL 5 MG TAB PO SCH (10:47)
[2021-09-27] MEDS: FERROUS SULFATE 325 MG TABLET.DR PO SCH (10:47)
[2021-09-27] MEDS: MEMANTINE HCL 5 MG TABLET PO SCH (10:47)
[2021-09-27] MEDS: PANTOPRAZOLE 40 MG TAB DR PO SCH (10:47)
[2021-09-27] MEDS: CEFTRIAXONE 1G VIAL IVP SCH (10:47)
== END 2021-09-27 13:07 | disposition home or self-care (01) | DRG 442 ==
LOC: EDH 08:16 → EDHIP 09:50 → OBSVTOIN 09:50 → 3BH 12:54
PROVIDERS: ADMIT Internal Medicine; ATTEND Internal Medicine
DX: K72.90 Hepatic failure, unspecified without coma (principal); F05 Delirium due to known physiological condition; K76.6 Portal hypertension; D61.818 Other pancytopenia; E72.20 Disorder of urea cycle metabolism, unspecified; K70.30 Alcoholic cirrhosis of liver without ascites; F03.90 Unspecified dementia, unspecified severity, without behavioral disturbance, psychotic disturbance, mood disturbance, and anxiety; F10.10 Alcohol abuse, uncomplicated; R29.6 Repeated falls; E78.5 Hyperlipidemia, unspecified; S51.011A Laceration without foreign body of right elbow, initial encounter; E78.00 Pure hypercholesterolemia, unspecified; I10 Essential (primary) hypertension; E86.0 Dehydration; E11.9 Type 2 diabetes mellitus without complications; Y93.89 Activity, other specified; Y92.89 Other specified places as the place of occurrence of the external cause; Y99.8 Other external cause status; Z79.4 Long term (current) use of insulin
CPT/HCPCS: 36415; 70450; 71045; 80053; 80305; 81001; 82140; 83735; 85025; 85027; 85610; G0378; J0696

== ENCOUNTER 2021-09-28 19:02 | Emergency (ER) | payer MEDICARE ==
[~2021-09-28] VITALS: Ht 172.7 cm; Wt 68.0 kg
[~2021-09-28 19:02] MED LIST changes: -LACT10SO46 PO
[2021-09-28 21:30] VITALS: BP 121/62
== END 2021-09-28 21:42 | disposition home or self-care (01) ==
LOC: EDH 19:02
DX: S09.90XA Unspecified injury of head, initial encounter (principal); Z79.899 Other long term (current) drug therapy; F03.90 Unspecified dementia, unspecified severity, without behavioral disturbance, psychotic disturbance, mood disturbance, and anxiety; W19.XXXA Unspecified fall, initial encounter; Y93.89 Activity, other specified; Y92.89 Other specified places as the place of occurrence of the external cause; Y99.8 Other external cause status
CPT/HCPCS: 99282

== ENCOUNTER 2021-10-19 13:02 | Observation (INO) | payer MEDICARE ==
[~2021-10-19] VITALS: Ht 167.6 cm; Wt 68.1 kg
[2021-10-19 13:59] LABS: BASOPHILS % (AUTO) 1.1 % (0.0-5.0); EOSINOPHILS % (AUTO) 2.5 % (0.0-8.0); HEMATOCRIT 29.5 % (42-54); LYMPHOCYTES % (AUTO) 15.4 % (21.0-51.0); MEAN CORPUSCULAR HEMOGLOBIN 29.1 pg (27.0-33.0); MEAN CORPUSCULAR HGB CONC 33.2 g/dL (32.0-36.0); MEAN CORPUSCULAR VOLUME 87.5 fL (79-99); MONOCYTES % (AUTO) 10.5 % (3.0-13.0); NEUTROPHILS % (AUTO) 70.1 % (40.0-77.0); PLATELET COUNT (AUTO) 73 K/uL (130-400); RED BLOOD CELL COUNT(AUTO) 3.37 MIL/uL (4.50-6.20); RED CELL DISTRIBUTION WIDTH 15.4 % (11.0-15.5); WHITE BLOOD COUNT (AUTO) 4.5 K/uL (4.8-10.8)
[2021-10-19 14:15] LABS: CREATININE 1.5 mg/dL (0.5-1.5); POTASSIUM 4.2 mmol/L (3.5-5.1)
[2021-10-19 14:28] LABS: B-TYPE NATRIURETIC PEPTIDE 81 pg/mL (0-100)
[2021-10-19 14:29] LABS: ALBUMIN 3.4 g/dL (3.5-5.0); BILIRUBIN,TOTAL 1.8 mg/dL (0.2-1.0); TOTAL PROTEIN, SERUM 7.1 g/dL (6.0-8.3)
[2021-10-19 15:12] LABS: APPEARANCE,URINE Clear (CLEAR); BILIRUBIN,URINE Negative (NEGATIVE); COLOR,URINE Yellow (YELLOW); GLUCOSE, URINE (UA) Negative (NEGATIVE); KETONES,URINE Negative (NEGATIVE); LEUKOCYTE ESTERASE ,URINE Trace (NEGATIVE); NITRATE,URINE Negative (NEGATIVE); OCCULT BLOOD,URINE Negative (NEGATIVE); PROTEIN,URINE Negative (NEGATIVE); UROBILINOGEN,URINE 0.2 mg/dL (0.2-1.0)
[2021-10-19 15:29] LABS: BACTERIA,URINE None Seen /HPF (None Seen); RBC,URINE None Seen /HPF (0-1); SQUAMOUS EPITHELIAL CELL,UR None Seen /HPF (0-2); WBC,URINE 0-1 /HPF (0-1)
[2021-10-19] MEDS ORDERED: 0.9%NACL 1000ML 1,000 ML IV ONE (15:30)
[2021-10-19] MEDS ORDERED: LACTULOSE 20 GM/30 ML UDCUP PO ONE (16:00)
[2021-10-19] MEDS ORDERED: LACTULOSE 20 GM/30 ML UDCUP PR ONE (16:00)
[2021-10-19] MEDS ORDERED: LACTULOSE 20 GM/30 ML UDCUP ONE (16:02)
[2021-10-19] MEDS: LACTULOSE 20 GM/30 ML UDCUP PO SCH (20:58)
[2021-10-19 21:25] VITALS: BP 109/61
[2021-10-20 00:26] VITALS: BP 102/62
[2021-10-20 03:07] VITALS: BP 119/78
[2021-10-20 03:56] LABS: HEMATOCRIT 26.3 % (42-54); MEAN CORPUSCULAR HGB CONC 33.8 g/dL (32.0-36.0); MEAN CORPUSCULAR VOLUME 85.7 fL (79-99); PLATELET COUNT (AUTO) 64 K/uL (130-400); RED BLOOD CELL COUNT(AUTO) 3.07 MIL/uL (4.50-6.20); RED CELL DISTRIBUTION WIDTH 15.7 % (11.0-15.5); WHITE BLOOD COUNT (AUTO) 3.9 K/uL (4.8-10.8)
[2021-10-20 04:13] LABS: CREATININE 1.4 mg/dL (0.5-1.5); MAGNESIUM 2.3 mg/dL (1.80-2.40); POTASSIUM 3.9 mmol/L (3.5-5.1)
[2021-10-20 04:27] LABS: PLATELET MORPHOLOGY COMMENT LARGE PLTS PRESENT
[2021-10-20 08:00] VITALS: BP 100/55
[2021-10-20] MEDS: LACTULOSE 20 GM/30 ML UDCUP PO SCH ×4 (09:00→21:09)
[2021-10-20 11:54] VITALS: BP 98/53
[2021-10-20 16:00] VITALS: BP 106/53
[2021-10-20 20:00] VITALS: BP 103/55
[2021-10-21] VITALS: BP 114/59
[2021-10-21 03:48] LABS: HEMATOCRIT 27.1 % (42-54); MEAN CORPUSCULAR HEMOGLOBIN 28.8 pg (27.0-33.0); MEAN CORPUSCULAR HGB CONC 33.2 g/dL (32.0-36.0); MEAN CORPUSCULAR VOLUME 86.6 fL (79-99); RED BLOOD CELL COUNT(AUTO) 3.13 MIL/uL (4.50-6.20); RED CELL DISTRIBUTION WIDTH 15.6 % (11.0-15.5); WHITE BLOOD COUNT (AUTO) 4.3 K/uL (4.8-10.8)
[2021-10-21 03:59] LABS: ALBUMIN 2.9 g/dL (3.5-5.0); BILIRUBIN,TOTAL 1.3 mg/dL (0.2-1.0); CREATININE 1.4 mg/dL (0.5-1.5); POTASSIUM 4.2 mmol/L (3.5-5.1); TOTAL PROTEIN, SERUM 6.3 g/dL (6.0-8.3)
[2021-10-21 04:00] VITALS: BP 129/56
[2021-10-21 08:00] VITALS: BP 123/67
[2021-10-21] MEDS ORDERED: MEMA10TA11 PO (08:02)
[2021-10-21] MEDS: LACTULOSE 20 GM/30 ML UDCUP PO SCH (08:05)
[2021-10-21] MEDS ORDERED: FERROUS SULFATE 325 MG TABLET.DR PO SCH (09:00)
[2021-10-21] MEDS ORDERED: DONEPEZIL HCL 5 MG TAB PO SCH (09:00)
[2021-10-21] MEDS ORDERED: FUROSEMIDE 40 MG TABLET PO SCH (09:00)
[2021-10-21] MEDS ORDERED: SPIRONOLACTONE 25 MG TAB PO SCH (09:00)
[2021-10-21] MEDS ORDERED: PANTOPRAZOLE 40 MG TAB DR PO SCH (09:00)
[2021-10-21 11:52] VITALS: BP 110/58
[2021-10-21] MEDS ORDERED: OLANZAPINE 5 MG TAB PO SCH (21:00)
[2021-10-21] MEDS ORDERED: SERTRALINE HCL 50 MG TABLET PO SCH (21:00)
[2021-10-22] MEDS ORDERED: ACET-2247 PO (22:23)
== END 2021-10-21 14:20 | disposition home or self-care (01) ==
LOC: EDH 13:02 → INTOOBSV 17:21 → EDHIP 17:21 → 4CH 21:01
PROVIDERS: ADMIT Family Medicine; ATTEND Family Medicine
DX: E72.20 Disorder of urea cycle metabolism, unspecified (principal); S09.90XA Unspecified injury of head, initial encounter; I10 Essential (primary) hypertension; K74.60 Unspecified cirrhosis of liver; D64.9 Anemia, unspecified; E11.9 Type 2 diabetes mellitus without complications; E86.0 Dehydration; F03.90 Unspecified dementia, unspecified severity, without behavioral disturbance, psychotic disturbance, mood disturbance, and anxiety; N28.9 Disorder of kidney and ureter, unspecified; R29.6 Repeated falls; Z90.49 Acquired absence of other specified parts of digestive tract; Z91.81 History of falling; W18.30XA Fall on same level, unspecified, initial encounter; Y92.89 Other specified places as the place of occurrence of the external cause; Y93.89 Activity, other specified; Y99.8 Other external cause status
CPT/HCPCS: 36415 ×3; 70450; 71250; 72125; 73030; 73070 ×2; 73560; 74176; 80048; 80053 ×2; 81001; 82140 ×3; 82948 ×6; 83605; 83735; 83880; 84484; 85025; 85027 ×2; 87040 ×2; 87088; 93005; 99285; G0378 ×25

== ENCOUNTER 2021-10-22 19:49 | Emergency (ER) | payer MEDICARE ==
[~2021-10-22 19:49] MED LIST changes: +MEMA10TA11 PO; -MEMA5TAB7 PO; -QUET50TA24 PO
[2021-10-22] MEDS ORDERED: MORPHINE 2 MG SYG IM ONE (20:30)
[2021-10-22 22:20] VITALS: BP 106/51
[2021-10-22] MEDS ORDERED: ACET-2247 PO (22:23)
== END 2021-10-23 02:09 | disposition home or self-care (01) ==
LOC: EDH 19:49
DX: S62.102A Fracture of unspecified carpal bone, left wrist, initial encounter for closed fracture (principal); S63.502A Unspecified sprain of left wrist, initial encounter; M19.032 Primary osteoarthritis, left wrist; M18.11 Unilateral primary osteoarthritis of first carpometacarpal joint, right hand; E11.9 Type 2 diabetes mellitus without complications; F03.90 Unspecified dementia, unspecified severity, without behavioral disturbance, psychotic disturbance, mood disturbance, and anxiety; Z79.899 Other long term (current) drug therapy; Z90.49 Acquired absence of other specified parts of digestive tract; X58.XXXA Exposure to other specified factors, initial encounter; Y93.89 Activity, other specified; Y92.89 Other specified places as the place of occurrence of the external cause; Y99.8 Other external cause status
CPT/HCPCS: 73110; 96372